=== PATIENT | male | born 2000 | race Two or more races ===

== ENCOUNTER 2022-10-15 12:32 | Emergency (ER) | payer SELFPAY | END 2022-10-15 14:22 | disposition home or self-care (01) | LOC: ERS 12:32 | DX: S93.401A Sprain of unspecified ligament of right ankle, initial encounter (principal); Y93.67 Activity, basketball ==

== ENCOUNTER 2023-07-21 22:06 | Emergency (ER) | payer SELFPAY ==
[2023-07-21] MEDS ORDERED: Acetaminophen 500 MG TAB ONE (22:25)
[2023-07-21] MEDS ORDERED: Ibuprofen 800 MG TAB ONE (22:25)
== END 2023-07-21 23:14 | disposition home or self-care (01) ==
LOC: ERS 22:06
DX: S52.122A Displaced fracture of head of left radius, initial encounter for closed fracture (principal); S50.02XA Contusion of left elbow, initial encounter; W18.30XA Fall on same level, unspecified, initial encounter; Y93.67 Activity, basketball

== ENCOUNTER 2023-11-26 18:10 | Emergency (ER) | payer MEDICAID, SELFPAY ==
[2023-11-26 18:49] LABS: #Basophils 0.05 10x3/uL (0.0-0.2); #Eosinophils Less than 0.03 10x3/uL (0.0-0.7); %Basophils 0.3 % (0.0-1.0); %Lymphocytes 6.3 % (21.0-51.0); %Monocytes 3.8 % (0.0-10.0); %Neutrophils 89.2 % (42.0-75.0); Hematocrit 46.4 % (42.0-52.0); Hemoglobin 16.2 g/dL (14.0-18.0); Mean Corpuscular HGB CONC 34.9 g/dL (32.0-36.0); Mean Corpuscular Hemoglobin 31.8 pg (27.0-31.0); Mean Corpuscular Volume 91.2 fL (78.0-98.0); Mean Platelet Volume 10.2 fL (7.4-10.4); Platelet Count 229 10x3/uL (130-400); RBC Distribution Width 13.2 % (11.5-14.5); Red Blood Cell (RBC) Count 5.09 mill/uL (4.70-6.10)
[2023-11-26 19:03] LABS: ALT (SGPT) 12 U/L (8-55); AST (SGOT) 14 U/L (5-34); Albumin 4.7 g/dL (3.5-5.0); Alkaline Phosphatase 61 U/L (40-110); Anion Gap 18 mmol/L (10-20); BUN (Urea Nitrogen) 15 mg/dL (8.9-20.6); Calc. Creatinine Clearance 0 mL/min (70-130); Calcium 10.3 mg/dL (7.8-10.44); Carbon Dioxide 22 mmol/L (22-29); Chloride 105 mmol/L (98-107); Estimated GFR 85; Globulin 3.1 g/dL (2.4-3.5); Glucose 123 mg/dL (70-105); Lipase 6 U/L (8-78); Potassium 4.2 mmol/L (3.5-5.1); Protein, Total 7.8 g/dL (6.0-8.3); Sodium 141 mmol/L (136-145)
[2023-11-26] MEDS ORDERED: Metoclopramide HCl 10 MG (2 mL) VIAL ONE (19:08)
[2023-11-26] MEDS ORDERED: diphenhydrAMINE 50 MG/ML VIAL ONE (19:08)
[2023-11-26] MEDS ORDERED: Haloperidol Lactate 5 MG/ML VIAL ONE (19:08)
[2023-11-26] MEDS ORDERED: Ondansetron PF 4 MG/2 ML Vial ONE (19:08)
== END 2023-11-26 20:41 | disposition home or self-care (01) ==
LOC: ERS 18:10
DX: R10.13 Epigastric pain (principal); R11.10 Vomiting, unspecified; F12.188 Cannabis abuse with other cannabis-induced disorder
CPT/HCPCS: 36415; 74176; 80053; 83690; 85025; 96374; 96375; J1200; J1630; J2405; J2765

== ENCOUNTER 2024-04-01 16:43 | Emergency (ER) | payer SELFPAY ==
[2024-04-01 17:39] LABS: Bacteria/HPF None Seen HPF (None Seen); Bilirubin Negative (Negative); Blood, Urine Negative (Negative); CAUTI Indications for Culture Dysuria,urgency,freq; Clarity Clear (Clear); Glucose, Urine (Dipstick) Normal (Negative); Ketone, Urine Negative (Negative); Leukocyte Negative Leu/uL (Negative); Nitrite Negative (Negative); Protein, Urine (Dipstick) Negative (Neg-Trace); RBC/HPF None Seen HPF (0-3); Specific Gravity, Urine 1.012 (1.002-1.036); Squamous Epithelial 0-3 HPF (0-3); Urobilinogen Normal mg/dL (Less than 2); WBC/HPF 0-3 HPF (0-3)
[2024-04-01 17:40] LABS: Urine Culture Reflex No No
[2024-04-01 18:33] LABS: HIV (1/2) Antibody/Antigen NONREACTIVE (NonReactive); HIV 1/2 INDEX 0.11 S/CO (<1.00)
[2024-04-01] MEDS ORDERED: Lidocaine 1% MPF 2 ML VIAL ONE (19:00)
[2024-04-01] MEDS ORDERED: Azithromycin 250 MG TAB ONE (19:00)
[2024-04-01] MEDS ORDERED: cefTRIAXone (ROCEPHIN) 500 MG VIAL ONE (19:00)
[2024-04-02 11:41] LABS: Syphilis Antibody Nonreactive (Nonreactive); Syphilis Antibody Index 0.02 S/CO (<1.00 Non-Reactive)
[2024-04-02 22:53] LABS: Chlam.trachomatis by PCR,Urine Not Detected (NotDetected); GC N.gonorrhoeae PCR,UrineVOID Not Detected (NotDetected)
== END 2024-04-01 19:26 | disposition home or self-care (01) ==
LOC: ERS 16:43
DX: R30.0 Dysuria (principal)
CPT/HCPCS: 36415; 81001; 86780; 87389; 87491; 87591; 96372; 99283; J0696